=== PATIENT | male | born 1960 | race Caucasian/White ===

== ENCOUNTER 2020-02-18 12:57 | Emergency (ER) | payer OTHER ==
[~2020-02-18] VITALS: Ht 175.3 cm; Wt 68.9 kg
[2020-02-18 13:13] VITALS: BP 154/94
[2020-02-18] MEDS ORDERED: NACL 0.9% 2,000 ML IV ONE (13:15)
[2020-02-18 13:34] LABS: APPEARANCE,URINE CLEAR (CLEAR); BILIRUBIN,URINE NEGATIVE (NEGATIVE); BLOOD, URINE NEGATIVE (NEGATIVE); COLOR,URINE YELLOW (YELLOW); LEUKOCYTE ESTERASE ,URINE NEGATIVE (NEGATIVE); NITRITE, URINE NEGATIVE (NEGATIVE); PH,URINE 5.5 (5.0-9.0); UGLUCOSE 3+ (NEGATIVE)
[2020-02-18 13:34] LABS: BASOPHILS # (AUTO) 0.1 K/uL (0.00-0.22); BASOPHILS % (AUTO) 0.8 % (0.0-2.0); EOSINOPHILS % (AUTO) 0.5 % (0.0-4.0); HEMATOCRIT 48.6 % (36-52); HEMOGLOBIN 16.8 g/dL (12.0-18.0); LYMPHOCYTES # (AUTO) 1.5 K/uL (2.0-11.5); LYMPHOCYTES % (AUTO) 19.9 % (20.5-51.1); MEAN CORPUSCULAR HEMOGLOBIN 32 pg (27-31); MEAN CORPUSCULAR HGB CONC 35 g/dL (33-37); MONOCYTES # (AUTO) 0.5 K/uL (0.8-1.0); MONOCYTES % (AUTO) 6.7 % (1.7-9.3); NEUTROPHILS # (AUTO) 5.4 K/uL (1.8-7.7); NEUTROPHILS % (AUTO) 72.1 % (42.2-75.2); PLATELET COUNT (AUTO) 178 K/uL (140-450); RED BLOOD CELL COUNT(AUTO) 5.34 MIL/uL (4.20-6.10); RED CELL DISTRIBUTION WIDTH 12.6 % (11.6-13.7); WHITE BLOOD COUNT (AUTO) 7.5 K/uL (4.8-10.8)
[2020-02-18 13:55] LABS: CREATININE 1.2 mg/dL (0.6-1.3); TOTAL BILIRUBIN 1.5 mg/dL (0.0-1.0)
[2020-02-18] MEDS ORDERED: INSULIN REGULAR, HUMAN 100 UNIT/ML VIAL SUBQ ONE ×2 (14:10→15:20)
[2020-02-18] MEDS ORDERED: NACL 0.9% 500 ML IV ONE (15:20)
[2020-02-18 16:25] VITALS: BP 154/78
== END 2020-02-18 16:26 | disposition home or self-care (01) ==
LOC: MED 12:57
DX: E11.65 Type 2 diabetes mellitus with hyperglycemia (principal); R03.0 Elevated blood-pressure reading, without diagnosis of hypertension; Z98.890 Other specified postprocedural states
CPT/HCPCS: 36415; 80053; 81003; 84484; 85025; 93005; 96360; 96361; 96372; 99284; J1815; J7030